=== PATIENT | male | born 1985 | race Two or more races ===

== ENCOUNTER 2020-06-07 02:03 | Inpatient (IN) | payer OTHER ==
[~2020-06-07] VITALS: Ht 165.1 cm; Wt 68.0 kg
--- NOTE | 2020-06-07 02:20 | NUR ---
PT [employer] C/O LUQ ABDOMINAL PAIN. DENIES NAUSEA/VOMITTING/DIRRHEA. PT IN CUSTODY. AAOX4. AMBULATORY STEADY GAIT. VITAL SIGNS STABLE. NO ACUTE DISTRESS NOTED AT THIS TIME. [employer] AT BESIDE, WILL CONTINUE TO MONITOR
[2020-06-07 02:59] LABS: BASOPHILS % (AUTO) 0.3 % (0.0-2.0); EOSINOPHILS % (AUTO) 2.8 % (0.0-6.0); HEMATOCRIT 49 % (39-51); HEMOGLOBIN 16.2 g/dL (13.5-17.5); LYMPHOCYTES # (AUTO) 1.4 /CMM (0.8-4.8); LYMPHOCYTES % (AUTO) 11.2 % (20.0-44.0); MEAN CORPUSCULAR HGB CONC 33 g/dl (31.0-36.0); MEAN CORPUSCULAR VOLUME 91 fL (80-96); MONOCYTES # (AUTO) 1.1 /CMM (0.1-1.30); MONOCYTES % (AUTO) 8.2 % (2.0-12.0); NEUTROPHILS % (AUTO) 77.5 % (43.0-81.0); PLATELET COUNT (AUTO) 262 /CMM (150-450); WHITE BLOOD COUNT (AUTO) 12.9 K/uL (4.3-11.0)
[2020-06-07 03:04] LABS: ALBUMIN 3.3 g/dL (3.4-5.0); BILIRUBIN,DIRECT 0.1 mg/dL (0.0-0.2); BILIRUBIN,TOTAL 0.3 mg/dL (0.2-1.0); CALCIUM, SERUM 8.9 mg/dL (8.5-10.1); CREATININE 0.8 mg/dL (0.6-1.3); POTASSIUM 3.8 mmol/L (3.5-5.1); TOTAL PROTEIN, SERUM 7.2 g/dL (6.4-8.2)
[2020-06-07] MEDS ORDERED: IOHEXOL-300 100 ML VIAL IV ONE (03:07)
[2020-06-07] MEDS ORDERED: IV NS 0.9% 250 ML IV ONE (03:08)
--- NOTE | 2020-06-07 03:17 | NUR ---
RETURNED FROM CT
--- NOTE | 2020-06-07 04:15 | NUR ---
DR. CABRERA SPEAKING WITH RADIOLOGIST
--- NOTE | 2020-06-07 05:19 | NUR ---
PER LAB COVID TEST NEGATIVE.
--- NOTE | 2020-06-07 05:20 | NUR ---
ATTEMPTED TO CONTACT DR. LINDSAY (CHILD WELFARE ASSISTANT SURGERY) FOR CONSULT, LEFT MESSAGE. WILL FOLLOW UP
--- NOTE | 2020-06-07 05:25 | NUR ---
DR. CABRERA SPEAKING WITH DR. COOK REGARDING ADMISSION
--- NOTE | 2020-06-07 05:31 | NUR ---
CALLED NURSING SUP FOR BED
--- NOTE | 2020-06-07 05:42 | NUR ---
BED ASSIGNMENT 316-1
--- NOTE | 2020-06-07 05:54 | NUR ---
RADIOLOGY AT BEDSIDE FOR XRAY
--- NOTE | 2020-06-07 05:58 | NUR ---
REPORT GIVEN TO FINA GILLIAM FOR KATIE
[2020-06-07] MEDS ORDERED: ONDANSETRON HCL/PF 4 MG/2 ML VIAL IVP PRN (06:00)
[2020-06-07] MEDS ORDERED: MORPHINE SULFATE INJ 2 MG/ML DISP.SYRIN IV PRN (06:00)
[2020-06-07] MEDS ORDERED: DIATR MEGLU/DIATRIZOATE SODIUM 120 ML BOTTLE (GASTROGRAPHIN) ONE (06:06)
--- NOTE | 2020-06-07 06:24 | NUR ---
PT TRANSFERRED TO [facility] BED 316 VIA GURNEY IN STABLE CONDITION. [employer] AT BEDSIDE.
[2020-06-07 06:38] VITALS: BP 115/92
--- NOTE | 2020-06-07 06:42 | NUR ---
Rn notes: Received report form Ella argueta at 0600am. Pt under [employer] custody brought to er for c/o abdl pain. Brought to the unit via gurney, arrived at 0630am. Pt alert oriented x 4 sinhala speaking only. [employer] officers at bed side. On ra respirations even and unlabored. Npo, iv access patent and flushing well on hl. Vs taken and recorded. Will endorse to day rn for completion of admission.
[2020-06-07 08:00] VITALS: BP 115/92
--- NOTE | 2020-06-07 08:09 | NUR ---
MS/RN OPENING NOTES RECEIVED PATIENT ON BED. PATIENT IN NO APPARENT RESPIRATORY DISTRESS NOTED. PATIENT COMPLAINED OF PAIN. WILL CONTINUE TO MONITOR.
[2020-06-07] MEDS: PANTOPRAZOLE 40 MG VIAL IV SCH (09:00)
[2020-06-07] MEDS: IV NS 0.9% 1,000 ML IV PRN ×2 (10:08→23:07)
[2020-06-07 16:00] VITALS: BP 114/67
--- NOTE | 2020-06-07 19:21 | NUR ---
MS/RN CLOSING NOTES PATIENT IS ON BED, ALERT AND ORIENTED X4. PATIENT DENIES PAIN AT THIS TIME. PATIENT IN NO APPARENT RESPIRATORY DISTRESS NOTED. IV ACCESS AT RIGHT AC # 18G WITH IV FLUID OF NS 1L AT 100ML//HR ON AND INFUSING WELL. SEEN AN EXAMINED BY MD WITH ORDERS MADE AND CARRIED OUT. SAFETY PRECAUTIONS WAS IN PLACED. BED IN LOWEST POSITION. SIDE RAILS UP X2. ALL NEEDS WAS ATTENDED. CALL LIGHTS WITHIN REACH. WILL ENDORSED TO REGULATORY PROCESS MANAGER FOR KATIE.
--- NOTE | 2020-06-07 19:40 | NUR ---
MS RN OPENING NOTES DR. LINDSAY AT BEDSIDE, PER ANGÉLICA, NO NEED FOR SURGICAL PROCEDURE; PATIENT A/OX4, BREATHING EVEN AND UNLABORED; TOLERATING ROOM AIR WELL, BREATHING EVEN AND UNLABORED; NO SOB NOTED AT THIS TIME; 2 POLICE OFFICERS AT BEDSIDE; R AC # 18 INTACT AND PATENT, INFUSING NS @ 100ML/HR; TOLERATING IVF WELL; SAFETY PRECAUTIONS IMPLEMENTED; BED LOCKED IN LOW POSITION; SIDE RAILSX2; CALL LIGHT WITHIN EASY REACH; WILL CONT TO MONITOR
[2020-06-07 20:00] VITALS: BP 96/62
--- NOTE | 2020-06-08 06:48 | NUR ---
MS RN CLOSING NOTES PATIENT RESTING IN BED COMFORTABLY; A/OX4, [place] SPEAKING; ABLE TO MAKE NEEDS KNOWN; POLICE AT BEDSIDE; PATIENT NPO STATUS MAINTAINED; R AC #18 INTACT AND PATENT; INFUSING NS @ 100ML/HR; TOLERATING IVF WELL; ALL NEEDS RENDERED; SAFETY PRECAUTIONS IMPLEMENTED; BED LOCKED IN LOW POSITION; SIDE RAILSX2; CALL LIGHT WITHIN REACH; WILL ENDORSE KATIE TO ONCOMING SHIFT
--- NOTE | 2020-06-08 07:07 | NUR ---
MS RN OPENING NOTE RECEIVED PT AWAKE IN BED AT THIS TIME. AOX4. GERMAN SPEAKING, PT ABLE TO MAKE NEEDS KNOWN IN BULGARIAN. NO SOB NOTED, NO S/S OF ANY ACUTE DISTRESS NOTED. NO C/O PAIN AT THIS TIME. RESPIRATIONS ARE EVEN AND UNLABORED. IV ACCESS NOTED IN RAC G#18, PATENT, INTACT AND FLUSHING WELL. FALL AND SAFETY PRECAUTION IN PLACE AND MAINTAINED AT ALL TIMES. BED IN LOWEST LOCKED POSITION, HOB ELEVATED, SIDE RAILS UP X 2, CALL LIGHT WITHIN REACH. WILL CONTINUE TO MONITOR
[2020-06-08 08:00] VITALS: BP 111/64
[2020-06-08 08:04] LABS: BASOPHILS % (AUTO) 0.5 % (0.0-2.0); EOSINOPHILS % (AUTO) 4.7 % (0.0-6.0); HEMATOCRIT 47 % (39-51); HEMOGLOBIN 15.8 g/dL (13.5-17.5); LYMPHOCYTES # (AUTO) 1.4 /CMM (0.8-4.8); MEAN CORPUSCULAR HGB CONC 34 g/dl (31.0-36.0); MEAN CORPUSCULAR VOLUME 91 fL (80-96); MONOCYTES # (AUTO) 0.6 /CMM (0.1-1.30); MONOCYTES % (AUTO) 6.7 % (2.0-12.0); NEUTROPHILS # (AUTO) 6.9 /CMM (1.8-8.9); NEUTROPHILS % (AUTO) 73.1 % (43.0-81.0); PLATELET COUNT (AUTO) 257 /CMM (150-450); RED BLOOD CELL COUNT(AUTO) 5.19 MIL/uL (4.5-6.0); WHITE BLOOD COUNT (AUTO) 9.5 K/uL (4.3-11.0)
[2020-06-08 08:11] LABS: CALCIUM, SERUM 8.2 mg/dL (8.5-10.1); CREATININE 0.8 mg/dL (0.6-1.3); MAGNESIUM 2.2 mg/dL (1.8-2.4); PHOSPHORUS 2.7 mg/dL (2.5-4.9); POTASSIUM 4.3 mmol/L (3.5-5.1)
[2020-06-08 08:19] LABS: THYROID STIMULATING HORMONE 0.532 uIU/mL (0.358-3.74)
[2020-06-08] MEDS: IV NS 0.9% 1,000 ML IV PRN (09:13)
[2020-06-08] MEDS: PANTOPRAZOLE 40 MG VIAL IV SCH (09:14)
--- NOTE | 2020-06-08 15:25 | NUR ---
MS PRINT LINE OPERATOR NOTES PT DISCHARGED AT THIS TIME. PT IN MEDICALLY STABLE POSITION. ALL CARE, NEEDS, TREATMENT AND MEDICATIONS ADMINISTERED ANTICIPATED PER ORDER. PT DISCHARGE INSTRUCTIONS PROVIDED AND PT VERBALIZED UNDERSTANDING. IV ACCESS REMOVED, PRESSURE APPLIED, SECURE WITH GAUZE AND TAPE. NO SIGN OF BLEEDING OR INFILTRATION NOTED. BELONGINGS ACCOUNTED FOR, PICTURES TAKEN AND FILED IN CHART. PT ACCOMPANIED TWO POLICE OFFICERS.
[2020-06-08 15:30] VITALS: BP 105/70
== END 2020-06-08 15:30 | DRG 388 ==
LOC: ER 02:10 → MED 05:45
PROVIDERS: ADMIT Internal Medicine; ATTEND Internal Medicine
DX: K56.609 Unspecified intestinal obstruction, unspecified as to partial versus complete obstruction (principal); K65.9 Peritonitis, unspecified; J98.11 Atelectasis; J47.9 Bronchiectasis, uncomplicated; K59.00 Constipation, unspecified; D72.829 Elevated white blood cell count, unspecified
CPT/HCPCS: 36415; 74250-TC; 80048-TC; 80061-TC; 80076-TC; 83605-TC; 83690-TC; 83735-TC; 84100-TC; 84443-TC; 85025-TC; 85610-TC; 85730-TC; 87081-TC; C9113; C9803-CS; G0378; J7030; J7050; Q9963; Q9967